=== PATIENT | female | born 1995 | race Caucasian/White ===

== ENCOUNTER 2016-05-15 01:30 | Emergency (ER) | payer BC ==
[~2016-05-15] VITALS: Ht 175.3 cm; Wt 78.5 kg
[2016-05-15 01:33] VITALS: TEMP 36.9; Ht 175.3 cm; Wt 78.5 kg
[2016-05-15] MEDS ORDERED: SODIUM CHLORIDE 0.9% 1000ML 1,000 ML IV STA ×2 (01:44)
[2016-05-15] MEDS ORDERED: PANTOprazole INJ 40 MG in SYRINGE 0 ML IV ONE (02:15)
[2016-05-15 02:16] LABS: BASO % 0.4 %; BASO ABS # 0.03 K/uL (0-0.2); COMPLETE YES; EOS % 0.6 %; HEMATOCRIT 39.2 % (37-47); IG% 0.1 %; LYMPH % 38.9 %; MEAN CELL VOLUME 89.3 fL (80-100); MEAN CORPUSCULAR HEMOGLOBIN 29.6 pg (25-34); MEAN CORPUSCULAR HGB CONC 33.2 g/dl (32-36); MONO % 4.7 %; NEUT % 55.3 %; PLATELET COUNT 303 K/uL (130-400); RED BLOOD COUNT 4.39 M/uL (4.2-5.4); WHITE BLOOD COUNT 8.23 K/uL (4.8-10.8)
[2016-05-15 02:24] LABS: INR 0.9 (0.9-1.1); PARTIAL THROMBOPLASTIN RATIO 0.9; PROTHROMBIN TIME (PATIENT) 10.1 SECONDS (9.0-12.0)
[2016-05-15 02:35] LABS: ALT/SGPT 49 U/L (12-78); AST/SGOT 37 U/L (15-37); BLOOD UREA NITROGEN 9 mg/dl (7-18); BUN/CREATININE RATIO 10.8 (10-20); CALCIUM 8.4 mg/dl (8.5-10.1); CARBON DIOXIDE 26 mmol/L (21-32); CHLORIDE 112 mmol/L (98-107); GLUCOSE 82 mg/dl (70-99); POTASSIUM 3.7 mmol/L (3.5-5.1); SODIUM 148 mmol/L (136-145)
[2016-05-15 02:37] LABS: ACETAMINOPHEN < 2 ug/ml (10-30)
[2016-05-15 02:38] LABS: ALKALINE PHOSPHATASE 58 U/L (45-117)
[2016-05-15 02:43] LABS: PREG INTERNAL NEGATIVE QC NEG CLEAR BACKGROUND; PREG INTERNAL POSITIVE QC POS CONTROL LINE
--- NOTE | 2016-05-15 12:58 | EMERGENCY ROOM VISIT NOTE ---
ED Visit Note First contact with patient: 07:11 The patient was signed out to me at shift change by Maren Muñoz PA-C. Please see her dictation for additional details and hospital course. Briefly, the patient was brought to the emergency department last night for alcohol overdose. She reportedly took 10 Motrin. The patient was monitored in the emergency department until 11 AM when she was more sober. I reevaluated the patient. She denies any suicidal or homicidal ideation. She states that she took the Motrin because she was angry about a boy. The patient states that her freshman year she did get into a lot of trouble. She seems to be quite tearful and does not seem to be completely forthcoming. Therefore, an evaluation was performed by [facility] S. The patient will be discharged home but will follow up with [facility]. She should return immediately with any worsening symptoms or suicidal or homicidal ideation. A friend was with the patient and states she will ensure that the patient follows up appropriately.
[2016-05-15 13:08] VITALS: BP 130/63; PULSE 84; O2SAT 98
--- NOTE | 2016-06-02 03:36 | EMERGENCY ROOM VISIT NOTE ---
History First contact with patient: 01:41 Chief Complaint: ALCOHOL OVERDOSE Stated Complaint: DRUNK AND TOOK AROUND 20 ADVIL Nursing Triage Summary: Pt came in through triage. Pt reports drinking 5-6 vodka drinks tonight. PT reports chewing on about 15 pills of advil. When asked why patient took the medication patient states, "A boy made me do it" When asked if she was trying to kill herself patient states, "Maybe at the time. This boy was a douche bag." History of Present Illness The patient is a 20 year old female who presents to the Emergency Room with complaints of alcohol intoxication he took 15 tablets of ibuprofen 200 mg. Patient states she took it as she was upset about her ex-boyfriend. Patient states she was not trying to kill herself. Patient is intoxicated though. Patient denies thoughts of suicide, homicidal ideations, delusions, hallucinations, chest pain, dyspnea, abdominal pain, vomiting, drug use or any other medical complaints. No prior suicide attempts. Review of Systems See HPI for pertinent positives & negatives. A total of 10 systems reviewed and were otherwise negative. Past Medical/Surgical History None Social History Smoking Status: Never Smoker Smokeless Tobacco Use: No Alcohol Use: occasionally Drug Use: none Occupation Status: [employer] student Current/Historical Medications Unable to Obtain Active Prescriptions or Reported Meds Allergies Coded Allergies: No Known Allergies (Unverified , 01/04/15) Physical Exam Vital Signs Date Time Temp Pulse Resp B/P Pulse Ox O2 Delivery O2 Flow Rate FiO2 05/15/16 13:08 84 16 130/63 98 05/15/16 10:22 71 16 101/57 96 Room Air 05/15/16 08:23 98 16 109/56 96 Room Air 05/15/16 06:08 79 05/15/16 06:01 78 15 93/55 96 Room Air 05/15/16 05:01 74 13 85/50 99 Room Air 05/15/16 04:01 87 15 101/59 97 Room Air 05/15/16 03:01 73 18 93/43 95 Room Air 05/15/16 02:10 124 05/15/16 02:07 129 21 131/77 98 Room Air 05/15/16 01:33 36.9 104 18 133/90 100 Room Air Physical Exam VITALS: Vitals are noted on the nurse's note and reviewed by myself. Vital signs stable. GENERAL: White female with EtOH odor, in no acute distress, nondiaphoretic, well -developed well-nourished. SKIN: The skin was without rashes, erythema, edema, or bruising. There is no tenting of the skin. Capillary reflex less than 2 seconds. HEAD: Normocephalic atraumatic. EARS: External auditory canals clear, tympanic membranes pearly pringle without erythema or effusion bilaterally. EYES: Pupils equal round and reactive to light and accommodation. Conjunctivae with injection, sclerae without icterus. Extraocular movements intact. NOSE: Patent, turbinates without inflammation or discharge. MOUTH: Mucous membranes moist. Pharynx without erythema or exudate. Uvula midline. Airway patent. Tongue does not deviate. NECK: Supple without nuchal rigidity. No lymphadenopathy. No thyromegaly. Cervical spine is nontender. No JVD. HEART: Regular rate and rhythm without murmurs gallops or rubs. LUNGS: Clear to auscultation bilaterally without wheezes, rales or rhonchi. No dullness to percussion. No retractions or accessory muscle use. ABDOMEN: Positive bowel sounds x 4. Normal tympanic percussion. Soft, nontender, without masses or organomegaly. Dodd sign negative. No guarding or rebound tenderness. MUSCULOSKELETAL: No muscle atrophy, erythema, or edema noted. NEURO: Patient was alert and oriented to person place and time. Normal sensation to light and sharp touch. No focal neurological deficits. Psych: Pleasant and cooperative Medical Decision & Procedures Laboratory Results 05/15/16 02:04 Red Blood Count 4.39, Mean Corpuscular Volume 89.3, Mean Corpuscular Hemoglobin 29.6, Mean Corpuscular Hemoglobin Concent 33.2, Mean Platelet Volume 11.0, Neutrophils (%) (Auto) 55.3, Lymphocytes (%) (Auto) 38.9, Monocytes (%) (Auto) 4.7, Eosinophils (%) (Auto) 0.6, Basophils (%) (Auto) 0.4, Neutrophils # (Auto) 4.55, Lymphocytes # (Auto) 3.20, Monocytes # (Auto) 0.39, Eosinophils # (Auto) 0.05, Basophils # (Auto) 0.03 05/15/16 02:04 Test 05/15/16 02:04 White Blood Count 8.23 K/uL (4.8-10.8) Red Blood Count 4.39 M/uL (4.2-5.4) Hemoglobin 13.0 g/dL (12.0-16.0) Hematocrit 39.2 % (37-47) Mean Corpuscular Volume 89.3 fL (80-100) Mean Corpuscular Hemoglobin 29.6 pg (25-34) Mean Corpuscular Hemoglobin Concent 33.2 g/dl (32-36) Platelet Count 303 K/uL (130-400) Mean Platelet Volume 11.0 fL (7.4-10.4) Neutrophils (%) (Auto) 55.3 % Lymphocytes (%) (Auto) 38.9 % Monocytes (%) (Auto) 4.7 % Eosinophils (%) (Auto) 0.6 % Basophils (%) (Auto) 0.4 % Neutrophils # (Auto) 4.55 K/uL (1.4-6.5) Lymphocytes # (Auto) 3.20 K/uL (1.2-3.4) Monocytes # (Auto) 0.39 K/uL (0.11-0.59) Eosinophils # (Auto) 0.05 K/uL (0-0.5) Basophils # (Auto) 0.03 K/uL (0-0.2) RDW Standard Deviation 50.9 fL (36.4-46.3) RDW Coefficient of Variation 15.4 % (11.5-14.5) Immature Granulocyte % (Auto) 0.1 % Immature Granulocyte # (Auto) 0.01 K/uL (0.00-0.02) Prothrombin Time 10.1 SECONDS (9.0-12.0) Prothromb Time International Ratio 0.9 (0.9-1.1) Activated Partial Thromboplast Time 23.8 SECONDS (21.0-31.0) Partial Thromboplastin Ratio 0.9 Anion Gap 10.0 mmol/L (3-11) Est Creatinine Clear Calc Drug Dose 116.3 ml/min Estimated GFR () 122.2 Estimated GFR (Non- 105.4 BUN/Creatinine Ratio 10.8 (10-20) Osmolality 368 mOsm/kg (280-300) Calcium Level 8.4 mg/dl (8.5-10.1) Total Bilirubin 0.2 mg/dl (0.2-1) Direct Bilirubin < 0.1 mg/dl (0-0.2) Aspartate Amino Transf (AST/SGOT) 37 U/L (15-37) Alanine Aminotransferase (ALT/SGPT) 49 U/L (12-78) Alkaline Phosphatase 58 U/L (45-117) Total Creatine Kinase 248 U/L (26-192) Total Protein 7.9 gm/dl (6.4-8.2) Albumin 4.4 gm/dl (3.4-5.0) Lipase 226 U/L (73-393) Human Chorionic Gonadotropin, Qual NEG (NEG) Salicylates Level < 1.7 mg/dl (2.8-20) Acetaminophen Level < 2 ug/ml (10-30) Ethyl Alcohol mg/dL 256.0 mg/dl (0-3) Medications Administered Medications (Trade) Dose Ordered Sig/Alexi Route Start Time Stop Time Status Last Admin Dose Admin Sodium Chloride 1,000 ml @ 999 mls/hr Q1H1M STAT IV 05/15/16 01:44 05/15/16 02:44 DC 05/15/16 02:22 999 MLS/HR Sodium Chloride 1,000 ml @ 125 mls/hr Q8H STAT IV 05/15/16 01:44 05/15/16 09:43 DC 05/15/16 02:22 125 MLS/HR Pantoprazole Sodium/Syringe (Protonix Inj/ Syringe) 10 ml @ 5 mls/min NOW ONCE IV 05/15/16 02:15 05/15/16 02:16 DC 05/15/16 02:22 5 MLS/MIN ED Course Prior records/ancillary studies reviewed. Triage Nursing notes reviewed. Additional history obtained from friends The patient's history was concerning for altered mental status and probable overdose. Differential diagnosis: Etiologies such as toxicologic, infection, hypoglycemia, electrolyte abnormalities, cardiac sources, intracerebral event, neurologic, as well as others were entertained. Physical examination: The patient had normal sensorium. No trauma noted. ER treatment provided: IV NSS 1 L bolus IV hydration NSS 200 mL/hr Protonix On reassessment the patient was stable and improving. Diagnostic interpretation by me: The electrocardiogram was negative for pathologic change. There was no QRS widening or interval prolongation. Normal sinus, normal intervals, no acute ST- T wave changes, rate of 132. Impression sinus tachycardia interpreted by myself The labs revealed stable H&H. Negative Tylenol and aspirin levels elevated alcohol Consultation: A consultation was placed with Poison Control. The recommendations were for hydration and there is no concern for the amount of Motrin taken. This appears to be consistent with an isolated overdose. Patient was reassessed multiple times. She will be reassessed when she sober for possible psychiatric evaluation. She remained stable throughout her stay. By the evaluation outlined above emergent etiologies such as infection, hypoglycemia, electrolyte abnormalities, cardiac sources, intracerebral event, neurologic,as well as others were deemed relatively unlikely. Case is signed out to Yessy Leonardo PA-C pending patient sobering up and reevaluation in stable condition as she took an overdose of Motrin. She may need a psychiatric evaluation. Medical Decision As above Impression Primary Impression: Alcohol use with intoxication Additional Impression: Ibuprofen overdose Departure Information Dispostion Home / Self-Care Condition GOOD Prescriptions Unable to Obtain Active Prescriptions or Reported Meds Referrals No Doctor, Assigned (PCP) Patient Instructions My [facility] Additional Instructions Recommend do not take more medication then recommended on the bottle. Keep well-hydrated. Tylenol every 6 hours as needed for pain (Maximum 3000 mg Tylenol in 24 hr period). No driving for the next 24 hours. Recommend no alcohol for the next 48 hours and avoid binge drinking in the future. Return to ER sooner for chest pain, abdominal pain, worsening signs or symptoms or as needed. Follow-up with health services in 2-3 days. Problem Qualifiers
== END 2016-05-15 13:31 | disposition home or self-care (01) ==
LOC: C.EDB 01:32
DX: F10.129 Alcohol abuse with intoxication, unspecified (principal); Y90.8 Blood alcohol level of 240 mg/100 ml or more; T39.311A Poisoning by propionic acid derivatives, accidental (unintentional), initial encounter